=== PATIENT | male | born 1995 | race African-American/Black ===

== ENCOUNTER 2016-12-11 20:32 | Emergency (ER) | payer OTHER ==
[2016-12-11 19:32] LABS: ASCORBIC ACID (UR NOT ORDER) NEG (NEG); BILIRUBIN, URINE NEGATIVE (NEG); ER URINALYSIS TAT 0 Hrs 15 Mins; KETONE, URINE NEGATIVE (NEG); LEUKOCYTE ESTERASE(NOT OR LARGE (NEG); NITRITE (URINE) NEG (NEG); WBC (NOT ORDERED) (RFLEX) > 182 (0-5)
[2016-12-11 21:25] LABS: CHLAMYDIA TRACH PCR NOT DETECTED (NOT DETEC); SOURCE: MALE URINE
[2016-12-11 21:28] LABS: GC PCR DETECTED (NOT DETECT)
== END 2016-12-11 21:24 | disposition home or self-care (01) ==
LOC: ER 20:32
PROVIDERS: Nurse Practitioner Acute Care
DX: N34.2 Other urethritis (principal); F17.200 Nicotine dependence, unspecified, uncomplicated
CPT/HCPCS: 81001; 87086; 87491; 87591; 96372; 99283; A9270-GY; J0696